=== PATIENT | female | born 1965 | race African-American/Black ===

== ENCOUNTER 2020-12-31 15:18 | Inpatient (IN) | payer OTHER ==
[~2020-12-31] VITALS: Ht 152.4 cm; Wt 36.3 kg
[2020-12-31 15:26] VITALS: BP 129/98
[2020-12-31] MEDS ORDERED: TETRABENAZINE25 MG PO (16:06)
[2020-12-31 16:27] LABS: ABSOLUTE NEUTROPHILS 3.8 thou/uL (1.4-8.2); BASOPHILS 0.9 % (0.0-2.0); EOSINOPHILS 0.4 % (0.0-3.0); HEMATOCRIT 35.4 % (37.0-47.0); HEMOGLOBIN 11.9 gm/dL (12.0-15.0); LYMPHOCYTES 25.8 % (24.0-44.0); MCH 28.2 pg (26.0-34.0); MCHC 33.6 g/dL (28.0-37.0); MCV 84.2 fL (80.0-100.0); MONOCYTES 10.7 % (1.0-8.0); PLATELET COUNT 321 thou/uL (150-400); POLYS 62.2 % (36.0-66.0); RBC 4.21 mil/uL (4.20-5.00); RDW 16.5 % (10.5-14.5); WBC 6.2 thou/uL (4.0-11.0)
[2020-12-31 16:38] LABS: CALCIUM 9.3 mg/dL (8.5-10.1); CREATININE 0.8 mg/dL (0.6-1.0); POTASSIUM 3.9 mmol/L (3.5-5.1)
[2020-12-31 16:43] LABS: ALBUMIN 3.2 g/dL (3.4-5.0); TOTAL BILIRUBIN 0.2 mg/dL (0.2-1.0)
[2020-12-31 16:51] LABS: URINE BILIRUBIN NEGATIVE (Negative); URINE BLOOD NEGATIVE (Negative); URINE CLARITY CLEAR; URINE COLOR YELLOW; URINE GLUCOSE-RANDOM* NEGATIVE (Negative); URINE KETONES NEGATIVE (Negative); URINE LEUKOCYTES-REFLEX NEGATIVE (Negative); URINE NITRITE-REFLEX NEGATIVE (Negative); URINE PROTEIN (DIPSTICK) NEGATIVE (Negative); URINE UROBILINOGEN 0.2 E.U./dl (0.2-1.0)
--- NOTE | 2020-12-31 17:18 | NUR ---
ATTEMPTED TO CALL FACILITY AND LEFT MESSAGE FOR [facility] AT [phone] AND LEFT MESSAGE REQUESTING RETURN CALL CONFIRMING BED FOR PT.
--- NOTE | 2020-12-31 17:40 | EKG ---
[address] [place] [address] ELECTROCARDIOGRAM REPORT Name: JAY LUJAN [id number] Admission: 12/31/20 Attend Phys: Discharge: Date of : 65 Report #: [id number] [facility] ED Test Date: 2020-12-31 Test Time: 16:30:01 Pat Name: JAY LUJAN Department: Room: Gender: F Manager Application Development: MURALI : 1965 Requested By: Ag Velasquez Order Number: [id number] MD: Edi Lovelace Measurements Intervals [place] Rate: 89 P: 44 WY: 126 QRS: 20 QRSD: 74 T: 37 QT: 351 QTc: 428 Interpretive Statements Sinus rhythm Normal tracing No previous ECG available for comparison Electronically Signed On 12-31-2020 17:40:02 CDT by Edi Lovelace [email or web address] <ELECTRONICALLY SIGNED> By: Edi Lovelace MD, [facility] 12/31/20 1740 1630 1630 Edi Lovelace MD, FACC /EPI
[2020-12-31 21:16] VITALS: BP 162/102
--- NOTE | 2020-12-31 21:19 | NUR ---
Attempted to give report but was told RN busy with another pt
--- NOTE | 2020-12-31 21:37 | NUR ---
Attempted to give report to RN on 4th floor but was told she is still with a patient. ER charge and housekeeper child care notified
[2020-12-31 21:39] VITALS: BP 144/96
[2020-12-31 22:03] VITALS: BP 116/81
--- NOTE | 2021-01-01 02:45 | NUR ---
PT FROM THE ER @2149 ALERT TO SELF. CONFUSED WITH INAUDIBLE WORDS. IN INTACT AND FLUIDS INFUSING. CALLED PT SISTER ASAF ON [phone] ADMISSION QUESTIONS ASKED. SISTER STATED WILL COME BY TOMORROW WELL AND THAT PT HAS BEEN LIVING ALONE FOR 2WEEKS IN AN APARTMENT. FALL PREC IN PLACE, EXT FEMALE CATHETER TO SUCTION DUE TO INCONTINENCE. PO FLIUD PROVIDED. COVID RESULT NEGATIVE. WILL CONT WITH POC TILL EOS.
[2021-01-01 05:11] VITALS: BP 149/99
[2021-01-01 08:32] VITALS: BP 140/99
--- NOTE | 2021-01-01 16:03 | NUR ---
PT ADMITTED RELATED TO UNABLE TO CARE FOR SELF, FREQUENT FALLS. CM REVIEWED CHART AND SPOKE WITH CARE TEAM. CM MET WITH PT, SON TAMAR ROMERO OR , AND DTR IN LAW [facility]. PT APPERED TO BE A&O X4 BUT HARD TO UNDERSTAND AT TIMES. 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 SHE INDICATED 1 STEP TO ENTER AND NO STEPS INSIDE. PT INDICATED SHE HAS A FWW BUT HADN'T BEEN USING IT MANAGER COMPLETIONS. PT INDICATED NO HH OR SKILLED HX. 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 SON, DTR IN LAW PT AND SISTER DEMETRIUS ROMERO ALL WANTING FOR PT TO RELOCATE TO [place] TO LIVE WITH KULWINDER AT THEIR HOUSE. PT AND OT TO ASSESS. THEY ARE PLANNING TO DRIVE PT TO [place] TOMORROW. CM TO PROVIDE INFO ON GETTING [place] MEDICAID AND ESTABLISHING PCP. CM FOLLOWING REGARDING DC PLANNING.
--- NOTE | 2021-01-01 19:32 | NUR ---
Assumed pt care this am, VS stable, alert and oriented x3. Able to walk to the toilet with a gailt belt and 2 assists, pt is wobbly d/t parkinsons. Diet and medications are tolerated well. FAmily is at the bed side, plan is for children to take pt home to [place] tomorrow. POC followed, no signs or verbalizations of distress noted. Endorsed to the night nurse.
--- NOTE | 2021-01-02 02:29 | NUR ---
ASSUMED CARE OF PT AT SHIFT CHANGE. PT IS AOX3-4 AND LETS NEEDS BE KNOWN. FALL PRECAUTION IN PLACE. PT HAS TREMORS. PT DENIES PAIN, NAUSEA OR SOA. ASSESSMENT CHARTED. IVF CONTINUED. PT IS CONTINENT. PT WAS ABLE TO GET COMFORTABLE AND SLEEP PART OF THE SHIFT. VSS AND NO S/S OF ACUTE DISTRESS. WILL CONTINUE TO MONITOR.
[2021-01-02 08:15] VITALS: BP 173/126
[2021-01-02 11:48] VITALS: BP 139/99
[2021-01-02 13:49] VITALS: BP 139/99
[2021-01-02 13:54] VITALS: BP 139/99
--- NOTE | 2021-01-02 14:27 | NUR ---
CARE TEAM INDICATED THAT PT IS MEDICALLY STABLE TO DC WITH FAMILY THIS DAY. PT IS AWARE AND AGREEABLE. PT IS TO DC TO [place] WITH SON TAMAR AND DTR IN LAW [employer]. THEY WILL BE DRIVING THERE AND DEPARTING THIS AFTERNOON. CM PROVIDED THEM INFO FOR [place] MEDICAID AND RECOMMENDED THAT GET PT ESTABLISHED WITH A PCP [facility] UPON ARRIVAL. ORDERS FOR HH WERE PROVIDED AND CAN BE INITIATED ONCE ESTABLISHED WITH A PCP THERE. NO OTHER CM INTERVENTION INDICATED. CASE CLOSED.
--- NOTE | 2021-01-02 14:32 | NUR ---
Assumed pt care this am, VS stable. Took a complete bath today and is able to walkt to the toilet with a gait belt. Pt is continent of both bowel and blader, POC followed jose armando no signs or verbalizations of distress noted, IV removed pt went home with children to [place]. Pt is now ri.
== END 2021-01-02 15:04 | disposition home health service (06) | DRG 57 ==
LOC: ER 15:18 → 4W 19:18 → EROBS 19:18 → 4W 21:40
PROVIDERS: Physician Assistant; ADMIT Hospitalist; ATTEND Hospitalist
DX: G10 Huntington's disease (principal); E44.0 Moderate protein-calorie malnutrition; Z68.1 Body mass index [BMI] 19.9 or less, adult; G20 Parkinson's disease; Z60.2 Problems related to living alone; R53.81 Other malaise; Z74.1 Need for assistance with personal care; Z20.822 Contact with and (suspected) exposure to COVID-19
CPT/HCPCS: 10040